=== PATIENT | female | born 1965 | race Caucasian/White ===

== ENCOUNTER 2021-12-18 06:24 | Outpatient (CLI) | payer MEDICARE, OTHER, SELFPAY ==
[2021-12-18 07:02] LABS: Basophils Percent Auto 0.5 % (0.0-3.0); Eosinophils Percent Auto 3.2 % (0.0-7.0); Hematocrit 44.1 % (33.0-51.0); Hemoglobin* 15.4 gm/dL (12.0-16.0); Immature Granulocytes Abs Auto 0.02 K/uL (0.00-0.30); Lymphocytes Percent Auto 43.3 % (20-44); Mean Corpuscular HGB Conc 35 gm/dL (32-36); Mean Corpuscular Hemoglobin 33 pg (26-34); Mean Corpuscular Volume 95 fL (80-100); Monocytes Percent Auto 7.9 % (0.0-11.0); Neutrophils Percent Auto 44.6 % (42.0-72.0); Platelet Count* 224 K/uL (140-440); RDW Coefficient of Variation % 12.8 % (11.5-15.5); Red Blood Count 4.64 m/uL (4.00-5.20); White Blood Count* 4.43 K/uL (4.50-11.00)
[2021-12-18 07:13] LABS: Slide Review Reflex No
[2021-12-18 07:22] LABS: Albumin* 4.4 g/dL (3.3-5.0); Chloride* 106 mmol/L (96-114)
[2021-12-18 07:23] LABS: Potassium* 3.8 mmol/L (3.6-5.1); Sodium* 139 mmol/L (135-149)
[2021-12-18 07:25] LABS: Alkaline Phosphatase* 66 U/L (40-150); Aspartate Amino Transferase* 28 U/L (12-35); Bilirubin Total* 0.8 mg/dL (0.1-1.5); Blood Urea Nitrogen* 13 mg/dL (7-30); Carbon Dioxide* 25 mmol/L (20-32); Creatinine* 0.7 mg/dL (0.5-1.5); Estimated Glomerular Filt Rate 101 ml/min; Total Protein* 6.7 g/dL (6.0-8.3)
[2021-12-18 07:26] LABS: Alanine Aminotransferase* 21 U/L (4-35); Calcium* 9.3 mg/dL (8.4-10.6); Glucose* 110 mg/dL (60-115)
[2021-12-18 07:42] LABS: Vitamin D 25 Hydroxy* 63 ng/mL (30-80)
[2021-12-18 08:01] LABS: Ferritin* 61.1 ng/mL (11.1-264.0)
[2021-12-19 15:17] LABS: CRP, High Sensitivity 0.4 mg/L (<=3.0)
[2021-12-19 16:16] LABS: Homocysteine, Total 7 umol/L (0-15)
[2022-01-20 16:42] LABS: DHEAS 105
== END 2021-12-18 06:25 | disposition home or self-care (01) ==
PROVIDERS: Family Medicine; PCP Family Medicine
DX: B82.9 Intestinal parasitism, unspecified (principal); D72.819 Decreased white blood cell count, unspecified; K59.00 Constipation, unspecified; Z87.442 Personal history of urinary calculi; Z13.0 Encounter for screening for diseases of the blood and blood-forming organs and certain disorders involving the immune mechanism; M79.7 Fibromyalgia
CPT/HCPCS: 36415; 80053; 82306; 82627; 82728; 83090; 84590; 85025; 86141

== ENCOUNTER 2022-04-21 07:44 | Outpatient (CLI) | payer MEDICARE, OTHER, SELFPAY ==
[2022-04-21 08:41] LABS: Basophils Percent Auto 0.7 % (0.0-3.0); Eosinophils Percent Auto 2.1 % (0.0-7.0); Hemoglobin* 15.9 gm/dL (12.0-16.0); Lymphocytes Percent Auto 43.4 % (20-44); Mean Corpuscular HGB Conc 35 gm/dL (32-36); Mean Corpuscular Hemoglobin 33 pg (26-34); Mean Corpuscular Volume 96 fL (80-100); Monocytes Percent Auto 6.9 % (0.0-11.0); Neutrophils Percent Auto 46.9 % (42.0-72.0); Platelet Count* 225 K/uL (140-440); RDW Coefficient of Variation % 12.4 % (11.5-15.5); Red Blood Count 4.79 m/uL (4.00-5.20); White Blood Count* 4.19 K/uL (4.50-11.00)
[2022-04-21 08:46] LABS: Slide Review Reflex No
[2022-04-21 08:55] LABS: Albumin* 5.1 g/dL (3.3-5.0); Chloride* 105 mmol/L (96-114); Creatinine* 0.7 mg/dL (0.5-1.5); Estimated Glomerular Filt Rate 100 ml/min; Potassium* 4.6 mmol/L (3.6-5.1); Sodium* 141 mmol/L (135-149)
[2022-04-21 08:56] LABS: Alanine Aminotransferase* 23 U/L (4-35); Alkaline Phosphatase* 62 U/L (40-150); Aspartate Amino Transferase* 29 U/L (12-35); Bilirubin Total* 0.8 mg/dL (0.1-1.5); Blood Urea Nitrogen* 14 mg/dL (7-30); Calcium* 9.6 mg/dL (8.4-10.6); Carbon Dioxide* 29 mmol/L (20-32); Glucose* 92 mg/dL (60-115); Total Protein* 7.6 g/dL (6.0-8.3)
[2022-04-22 21:41] LABS: DHEAS 125 ug/dL (19-205)
== END 2022-04-21 07:45 | disposition home or self-care (01) ==
PROVIDERS: PCP Family Medicine; Visit Provider Family Medicine
DX: R53.83 Other fatigue (principal); B82.9 Intestinal parasitism, unspecified; Z87.442 Personal history of urinary calculi; Z79.890 Hormone replacement therapy
CPT/HCPCS: 36415; 80053; 82627; 85025

== ENCOUNTER 2023-03-27 13:08 | Outpatient (CLI) | payer MEDICARE, OTHER, SELFPAY ==
--- NOTE | 2023-03-27 13:20 | CRLHL7_ITS ---
For Patients: As a result of the Cures Act, medical imaging exams and procedure reports are released immediately into your electronic medical record. You may view this report before your referring provider. If you have questions, please contact your health care provider. BILATERAL SCREENING MAMMOGRAM WITH COMPUTER-AIDED DETECTION AND TOMOSYNTHESIS TECHNIQUE: CC and MLO views were obtained. These mammographic images have been obtained using full-field digital technique. These mammographic images were interpreted with the benefit of computer-aided detection. Breast tomosynthesis was used in this interpretation. COMPARISON FILM: 07/09/21, 05/10/20, 04/04/19. FINDINGS: There are scattered areas of fibroglandular density. IMPRESSION: There is no radiographic evidence for malignancy. ASSESSMENT: BI-RADS Category 1: Negative RECOMMENDATION: Routine screening mammogram in 1 year. A lay language report of this examination will be provided to the patient. STEPHEN LAND M.D. Diagnostic Radiologist [email or web address] Transcribed: 03/30/2023, 3:[address]/Dictated by: Stephen Land MD @ 03/30/2023 9:19:00 AM (Electronically Signed)
== END 2023-03-27 13:09 | disposition home or self-care (01) ==
PROVIDERS: PCP Family Medicine; Visit Provider Obstetrics & Gynecology
DX: Z12.31 Encounter for screening mammogram for malignant neoplasm of breast
CPT/HCPCS: 77063; 77067

== ENCOUNTER 2023-05-01 13:00 | Outpatient (RCR) | payer MEDICARE, OTHER, SELFPAY | END 2023-08-29 23:59 | disposition home or self-care (01) | PROVIDERS: PCP Family Medicine; Visit Provider Family Medicine | DX: S33.2XXA Dislocation of sacroiliac and sacrococcygeal joint, initial encounter (principal); M25.60 Stiffness of unspecified joint, not elsewhere classified; M62.838 Other muscle spasm; R52 Pain, unspecified; Z51.89 Encounter for other specified aftercare | CPT/HCPCS: 97110; 97140; 97162; 97535 ==

== ENCOUNTER 2023-07-14 10:52 | Emergency (ER) | payer MEDICARE, OTHER, SELFPAY ==
[2023-07-14] VITALS (9 sets, daily range): BP systolic 115–137; BP diastolic 71–81; PULSE 72–90; RESP 16; TEMP 36.2; O2SAT 96–100; BMI 24.8
--- NOTE | 2023-07-14 11:12 | ED_ITS ---
HPI - General Adult General Chief complaint: GI Bleed Stated complaint: lower left abdominal pain,blood in stool Time Seen by Provider: 07/14/23 10:55 History of Present Illness HPI narrative: Pt reports hx of diverticulitis. Symptoms have been progressing for about a month, LLQ pain. Pt reports has had some bleeding in stool during this time, yesterday there was a large amount of blood and clotting in stool. Pt reports hx of sepsis related to her diverticulitis in the past. 58-year-old woman presenting to the emergency department with concern of possible diverticulitis. Has been having some bleeding in her stool which seems atypical for her hemorrhoidal bleeding in the past. Admits that it might have a fissure as well. Yesterday though had larger amount of blood and hilary clots with bowel movement. Nauseated after this with some chills. Has not measured a fever. History of sepsis related to this and ureteral stone independently. Pain is an intense pressure in the left lower quadrant she can feel it around to the back a little bit. Does not report any dysuria frequency urgency or actual hematuria. It has been a few years since her last colonoscopy. Denies history of inflammatory bowel disorders. She has been having intermittent pulses of intense pain in the left lower abdomen over the last month. Intermittent bleeding in the toilet as well more than just staining toilet tissue. Today as noted above is worse. Related Data Home Medications Medication Instructions Recorded Confirmed epinephrine 0.3 mg/0.3 mL 0.3 ml IM .As Needed as needed PRN 12/25/21 07/09/23 injection, auto-injector ondansetron 4 mg disintegrating 4 mg PO .prn PRN 12/25/21 07/09/23 tablet estradiol PO 07/14/23 minoxidil-progesterone topical 07/14/23 progesterone micronized .ROUTE 07/14/23 Previous Rx's Medication Instructions Recorded hydrocortisone 2.5 % topical cream 1 applic topical BID PRN rash #30 06/24/22 grams ketoconazole 2 % topical cream 1 applic topical BID #60 grams 07/03/22 ondansetron 4 mg disintegrating 4 mg PO Q4-6H PRN nausea and 07/14/23 tablet vomiting #12 tabs peg 3350-electrolytes 236 See Rx Instructions .Route 07/14/23 gram-22.74 gram-6.74 gram-5.86 .COMPLEX #4,000 mL gram solution (GaviLyte-G) Allergies Allergy/AdvReac Type Severity Reaction Status Date / Time tamsulosin Allergy Severe Optic Verified 07/09/23 15:37 swelling dairy Allergy Intermediate Hives Uncoded 07/09/23 15:37 Nut tree Allergy Intermediate Hives Uncoded 07/09/23 15:37 [place] seed oil Allergy Intermediate Hives Uncoded 07/09/23 15:37 Wheat Extract Allergy Intermediate Hives Uncoded 07/09/23 15:37 Review of Systems Status of ROS: Reports: 6 or more systems reviewed and unremarkable except as noted in History and below [facility] Medical History Fungus infection ?B49 - Unspecified mycosis (ICD-10) Ear fullness ?H93.8X9 - Other specified disorders of ear, unspecified ear (ICD-10) Trigger finger ?M65.30 - Trigger finger, unspecified finger (ICD-10) History of induced hypertension ?Z87.59 - Personal history of other complications of , childbirth and the puerperium (ICD-10) Calculus of kidney ?N20.0 - Calculus of kidney (ICD-10) Basal cell carcinoma (BCC) ?C44.91 - Basal cell carcinoma of skin, unspecified (ICD-10) Acute flank pain ?R10.9 - Unspecified abdominal pain (ICD-10) Surgical History History of primary section ?Z98.891 - History of uterine scar from previous surgery (ICD-10) History of prior ablation treatment ?Z98.890 - Other specified postprocedural states (ICD-10) History of arthroscopy of left knee (11/07/16) ?Z98.890 - Other specified postprocedural states (ICD-10) History of ureter stent (2014) History of section (2002) ?Z98.891 - History of uterine scar from previous surgery (ICD-10) Family History Mother Ovarian cancer Thyroid cancer Colon cancer, Onset Age: 75 Sister Thyroid cancer Father Melanoma, Onset Age: 68 Social History Narrative: Exercises regularly. 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-smoker S/P ureteral stent placement Social drinker, 3-4/week What is your current living situation?: I presently have a place to live In the past 12 months, utilities in danger of being shut off: no In past 12 months, lack of transportation kept you from medical appts, meetings, work, or getting things needed for daily living: no In the past 12 mos, the food you bought just didn't last and you didn't have money to buy more?: never true Smoking Status: Never smoker Do you use any of these nicotine containing products: None How often do you have a drink containing alcohol: never AUDIT-C Alcohol total score: 0 Non-prescribed substance use: denies use How often does anyone, including family, friends and others, physically hurt you : never How often does anyone, including family, friends and others, insult or talk down to you: never How often does anyone, including family, friends and others, threaten you with harm: never How often does anyone, including family, friends and others, scream or curse at you: never Little interest or pleasure in doing things: not at all Feeling down, depressed, or hopeless: not at all service: No Exam Narrative: Exam Narrative: Very pleasant. Of good energy. Breathing easily. Lungs are clear. Heart in mildly elevated rate regular rhythm. No murmur rub or gallop identified. Abdomen with normoactive bowel sounds is soft and mildly tender in the left lower quadrant. There are no peritoneal signs. Extremities are well perfused. She is without edema. Const: Vital Signs, click to edit/add: Vital Signs - 24 hr 07/14/23 11:01 07/14/23 11:54 07/14/23 11:55 Temperature 97.2 F L Pulse Rate 73 73 Pulse Rate [Pulse Oximeter] 90 Respiratory Rate 16 Blood Pressure 115/81 Blood Pressure [Ri ght Upper Arm] 129/76 Pulse Oximetry 100 98 98 Oxygen Delivery Me thod Room Air 07/14/23 11:55 07/14/23 12:00 07/14/23 12:02 Temperature Pulse Rate 73 86 81 Pulse Rate [Pulse Oximeter] Respiratory Rate Blood Pressure 115/81 128/71 Blood Pressure [Ri ght Upper Arm] Pulse Oximetry 98 96 96 Oxygen Delivery Me thod 07/14/23 12:30 07/14/23 12:35 07/14/23 13:00 Temperature Pulse Rate 73 78 73 Pulse Rate [Pulse Oximeter] Respiratory Rate Blood Pressure Blood Pressure [Ri ght Upper Arm] Pulse Oximetry 99 96 98 Oxygen Delivery Me thod 07/14/23 13:02 07/14/23 13:02 Temperature Pulse Rate 72 72 Pulse Rate [Pulse Oximeter] Respiratory Rate Blood Pressure 137/78 137/78 Blood Pressure [Ri ght Upper Arm] Pulse Oximetry 99 99 Oxygen Delivery Me thod Documenting provider has reviewed patient's vital signs: yes Course Vital Signs Vital signs: Initial Vital Signs Temperature 97.2 F L 07/14/23 11:01 Temperature Source Temporal Artery Scan 07/14/23 11:01 Pulse Rate 90 07/14/23 11:01 Respiratory Rate 16 07/14/23 11:01 Blood Pressure 129/76 07/14/23 11:01 Blood Pressure Mean 93 07/14/23 11:01 Blood Pressure Position Sitting 07/14/23 11:01 Pulse Oximetry 100 07/14/23 11:01 Oxygen Delivery Method Room Air 07/14/23 11:01 Vital Signs Temperature 97.2 F L 07/14/23 11:01 Pulse Rate 90 07/14/23 11:01 Respiratory Rate 16 07/14/23 11:01 Blood Pressure 129/76 07/14/23 11:01 Pulse Oximetry 100 07/14/23 11:01 Oxygen Delivery Method Room Air 07/14/23 11:01 Temperature 97.2 F L 07/14/23 11:01 Pulse Rate 72 07/14/23 13:02 Respiratory Rate 16 07/14/23 11:01 Blood Pressure 137/78 07/14/23 13:02 Pulse Oximetry 99 07/14/23 13:02 Oxygen Delivery Method Room Air 07/14/23 11:01 Medical Decision Making MDM Narrative Medical decision making narrative: This might well be diverticular bleed. Has reassuring belly exam however. Return with die repairer forging to have a look with anoscope for potentially associated hemorrhoidal bleeding. Will check labs for more red flags or degree of illness. I suppose this could be separate rectal passage bleeding and ovarian issue like leaking ovarian cyst. Does not appear to be torsion level pain. Would be prudent to collect a urinalysis as well given history of kidney stones however pain also seems atypical as does the degree of blood that was described to be associated with ureteral stone. Returned to do anoscope exam. And there are [id number] noninflamed hemorrhoidal tissue externally. No marked bleeding on anoscope exam noted there is some trace streaks of blood though internally. She does say that with her last bowel movement there was not blood. Labs were reassuring. Hemoglobin little over 15. White count is not elevated. Normal CRP. Discussed potential further evaluation with CT scan abdomen. This would not be ideal assessment for rectal bleeding absent diarrhea, particularly in light of normal white count and CRP. Noted also duration of at least a month of cramping discomfort. I think this is best visualized/assessed with direct visualization with colonoscopy. Fear by Mrs. Marrero is expressed as potential abdominal mass of some sort. Mrs. Marrero and her are also inclined to defer CT imaging particularly as we are able to schedule colonoscopy for 3 days from now. I think less likely also diverticulitis for similar reasoning. I did offer antibiotics however for this but Mrs. Marrero also I think reasonably declined/deferred. No interventions were needed here in the emergency department. See patient discharge plan Medical Records Medical records reviewed: Yes I reviewed the patient's medical records Lab Data Lab results reviewed: Yes I reviewed the patient's lab results Labs: Lab Results 07/14/23 07/14/23 Range/Units 11:50 12:05 WBC 5.01 (4.50-11.00) K/uL RBC 4.67 (4.00-5.20) m/uL Hgb 15.1 (12.0-16.0) gm/dL Hct 44.8 (33.0-51.0) % MCV 96 (80-100) fL MCH 32 (26-34) pg MCHC 34 (32-36) gm/dL RDW Coeff of [place] 12.3 (11.5-15.5) % Plt Count 161 (140-440) K/uL Neut % (Auto) 47.9 (42.0-72.0) % Lymph % (Auto) 42.9 (20-44) % Tift % (Auto) 6.8 (0.0-11.0) % Eos % (Auto) 1.8 (0.0-7.0) % Baso % (Auto) 0.4 (0.0-3.0) % Neut # (Auto) 2.40 (1.7-7.0) K/uL Lymph # (Auto) 2.15 (0.90-2.90) K/uL Tift # (Auto) 0.30 (0.00-0.90) K/UL Eos # (Auto) 0.09 (0.00-0.50) K/uL Baso # (Auto) 0.02 (0.00-0.30) K/uL Abs Immat Gran (auto) 0.01 (0.00-0.30) K/uL Imm/Tot Granulo (auto) 0.2 % Diff Slide Review Acceptable Review (Acceptable) Sodium 140 (135-149) mmol/L Potassium 4.2 (3.6-5.1) mmol/L Chloride 105 (96-114) mmol/L Carbon Dioxide 25 (20-32) mmol/L Anion Gap 10 (7-15) mEq/L BUN 14 (7-30) mg/dL Creatinine 0.7 (0.5-1.5) mg/dL Estimated Creat Clear 90.43 Estimated GFR 100 ml/min Glucose 99 (60-115) mg/dL Calcium 9.7 (8.4-10.6) mg/dL C-Reactive Protein < 0.5 L (0.5-1.0) mg/dL Urine Color Yellow (Yellow) Urine Appearance Clear (Clear) Urine pH 6.0 (5.0-8.5) Ur Specific [place] 1.015 (1.000-1.030) Urine Protein Negative (Negative) Urine Glucose (UA) Negative (Negative) Urine Ketones Negative (Negative) Urine Blood Negative (Negative) Urine Nitrite Negative (Negative) Urine Bilirubin Negative (Negative) Urine Urobilinogen 0.2 (0.2-1.0) Ur Leukocyte Esterase Negative (Negative) Urine RBC 0-2 (0-2) Urine WBC 0-2 (0-5) Ur Squamous Epith Cells None (None-Few) Urine Bacteria None (None) Discharge Plan Discharge Clinical Impression: Abdominal pain, left lower quadrant, Lower GI bleed Patient Disposition: Home w/ Parent or Adult Condition: Stable Additional Instructions: Yes. Do pay attention :) Return for marked increase in persistent abdominal pain, associated fever, pe rsistent and increasing bleeding. Will send in Zofran and GoLYTELY to your pharmacy. Your colonoscopy is scheduled for July 17 with a 12:30pm arrival time. Please enter through the [facility]. If you have any questions or need to reschedule, please call [phone]. Please follow-up results with primary care provider; hopefully they transfer over there readily. Prescriptions: New ondansetron 4 mg tablet,disintegrating 4 mg PO Q4-6H PRN (Reason: nausea and vomiting) Qty: 12 1RF peg 3350-electrolytes [GaviLyte-G] 236-22.74-6.74 -5.86 gram recon soln See Rx Instructions .ROUTE .COMPLEX Qty: 4000 0RF Rx Instructions: see included instructions for bowel prep No Action hydrocortisone 2.5 % cream 1 applic topical BID PRN (Reason: rash) Qty: 30 1RF Rx Instructions: Apply topically to eyelids twice daily as needed, when skin clears put cream away ketoconazole 2 % cream 1 applic topical BID Qty: 60 0RF Rx Instructions: Apply to bottoms of feet and between toes twice a day for 3 weeks. ondansetron 4 mg tablet,disintegrating 4 mg PO .prn PRN epinephrine 0.3 mg/0.3 mL auto-injector 0.3 ml IM .As Needed as needed PRN estradiol PO minoxidil-progesterone topical Hold Instructions: Order Change progesterone micronized .ROUTE Follow Up/Referrals: Anup Steinberg MD [Primary Care Provider] - Stand Alone Forms: Plan B [facility] Info Instructions
[2023-07-14 12:08] LABS: Basophils Absolute Auto 0.02 K/uL (0.00-0.30); Basophils Percent Auto 0.4 % (0.0-3.0); Eosinophils Absolute Auto 0.09 K/uL (0.00-0.50); Eosinophils Percent Auto 1.8 % (0.0-7.0); Hematocrit 44.8 % (33.0-51.0); Hemoglobin* 15.1 gm/dL (12.0-16.0); Immature Granulocytes Abs Auto 0.01 K/uL (0.00-0.30); Immature Granulocytes Pct Auto 0.2 %; Lymphocytes Absolute Auto 2.15 K/uL (0.90-2.90); Lymphocytes Percent Auto 42.9 % (20-44); Mean Corpuscular HGB Conc 34 gm/dL (32-36); Mean Corpuscular Hemoglobin 32 pg (26-34); Mean Corpuscular Volume 96 fL (80-100); Monocytes Percent Auto 6.8 % (0.0-11.0); Neutrophils Percent Auto 47.9 % (42.0-72.0); Platelet Count* 161 K/uL (140-440); RDW Coefficient of Variation % 12.3 % (11.5-15.5); Red Blood Count 4.67 m/uL (4.00-5.20); White Blood Count* 5.01 K/uL (4.50-11.00)
[2023-07-14 12:15] LABS: Chloride* 105 mmol/L (96-114); Potassium* 4.2 mmol/L (3.6-5.1); Sodium* 140 mmol/L (135-149)
[2023-07-14 12:17] LABS: Appearance Urine Clear (Clear); Bilirubin Urine Negative (Negative); Blood Urine Negative (Negative); Color Urine Yellow (Yellow); Glucose Urine Negative (Negative); Ketones Urine Negative (Negative); Leukocyte Esterase Urine Negative (Negative); Nitrite Urine Negative (Negative); Protein Urine Negative (Negative); Specific Gravity Urine 1.015 (1.000-1.030); Urobilinogen Urine 0.2 (0.2-1.0)
[2023-07-14 12:18] LABS: Anion Gap 10 mEq/L (7-15); Blood Urea Nitrogen* 14 mg/dL (7-30); Carbon Dioxide* 25 mmol/L (20-32); Creatinine* 0.7 mg/dL (0.5-1.5); Est. Creatinine Clearance* 90.43; Estimated Glomerular Filt Rate 100 ml/min; Glucose* 99 mg/dL (60-115)
[2023-07-14 12:19] LABS: Calcium* 9.7 mg/dL (8.4-10.6)
[2023-07-14 12:22] LABS: C Reactive Protein* < 0.5 mg/dL (0.5-1.0)
[2023-07-14 12:29] LABS: Slide Review Reflex Yes
[2023-07-14 12:30] LABS: Slide Review Acceptable Review (Acceptable)
[2023-07-14 12:35] LABS: RBC Urine 0-2 (0-2); WBC Urine 0-2 (0-5)
== END 2023-07-14 13:32 | disposition home or self-care (01) ==
PROVIDERS: Emergency Provider Family Medicine; PCP Family Medicine
DX: R10.32 Left lower quadrant pain (principal); K92.2 Gastrointestinal hemorrhage, unspecified
CPT/HCPCS: 36415; 80048; 81001; 85025; 86140; 99283; 99284

== ENCOUNTER 2023-07-17 09:29 | Outpatient (CLI) | payer MEDICARE, OTHER, SELFPAY ==
--- NOTE | 2023-07-17 10:51 | W.ANESCHARGE ---
Anesthesia Charges Start Date/Time Anesthesia Start Date: 07/17/23 Anesthesia Start Time: 10:20 Stop Date/Time Anesthesia Stop Date: 07/17/23 Anesthesia Stop Time: 10:51
--- NOTE | 2023-07-17 11:07 | W.ANESCHARGE ---
Anesthesia Charges Start Date/Time Anesthesia Start Date: 07/17/23 Anesthesia Start Time: 10:20 Stop Date/Time Anesthesia Stop Date: 07/17/23 Anesthesia Stop Time: 10:51
== END 2023-07-17 09:30 | disposition home or self-care (01) ==
LOC: OP CLINIC 09:29
PROVIDERS: PCP Family Medicine; Visit Provider Internal Medicine
DX: K92.1 Melena (principal); K64.8 Other hemorrhoids; K63.89 Other specified diseases of intestine; K57.30 Diverticulosis of large intestine without perforation or abscess without bleeding
CPT/HCPCS: 00811; 45380; 88305; J2704

== ENCOUNTER 2023-08-12 14:36 | Outpatient (CLI) | payer MEDICARE, OTHER, SELFPAY ==
--- NOTE | 2023-08-12 15:00 | US_ITS ---
Patient: ARLEY REDMAN Facility:?[facility] Patient ID:?[id number] Site Patient ID:?[id number]. Site :?[id number] Study:?US-Pelvis TA/TV-08/12/2023 3:50:49 PM Ordering Physician:CITLALY Final Report: CLINICAL HISTORY: Pain TECHNIQUE: 2D pelayo scale ultrasound. In addition color Doppler and spectral Doppler analysis was performed of the pelvis using a transabdominal and transvaginal approach. FINDINGS: On transvaginal imaging, the myometrium has a heterogeneous echotexture. The uterus measures 4.8 x 4.0 x 3.0 cm. The endometrial lining measures 3 mm in thickness. Hypoechoic uterine fibroid measures 5 x 3 x 7 millimeters. The right ovary measures 3.5 x 1.0 x 1.0 cm. Hypoechoic right ovarian cyst measures 1.6 x 1.0 x 0.9 cm. Calcification within the left ovary measuring 3 millimeters. The left ovary measures 2.4 x 1.0 x 1.1 cm. The ovaries demonstrate normal arterial and venous blood flow on color Doppler and spectral Doppler analysis. There are no suspicious fluid collections within the cul-de-sac. IMPRESSION: Heterogeneous uterine echotexture with small fibroid measuring 7 millimeters. Endometrial thickness 3 millimeters. Hypoechoic nonvascular right ovarian cyst measures 1.6 cm. Consider a follow up ultrasound in less than 6 months. Pelvic MRI could also be considered. Incidental calcification left ovary. Dictated by Stephen Calvo MD @ 08/13/2023 10:33:23 AM Signed by:?Stephen Calvo MD @08/13/2023 10:33:23 AM (Electronic Signature)
== END 2023-08-12 14:37 | disposition home or self-care (01) ==
LOC: US 14:37
PROVIDERS: PCP Family Medicine; Visit Provider Family Medicine
DX: R10.32 Left lower quadrant pain (principal); D25.9 Leiomyoma of uterus, unspecified; R93.89 Abnormal findings on diagnostic imaging of other specified body structures; N83.201 Unspecified ovarian cyst, right side
CPT/HCPCS: 76830; 76856; 93976

== ENCOUNTER 2024-02-09 12:04 | Outpatient (CLI) | payer MEDICARE, OTHER, SELFPAY ==
--- NOTE | 2024-02-09 12:15 | CRLHL7_ITS ---
For Patients: As a result of the Cures Act, medical imaging exams and procedure reports are released immediately into your electronic medical record. You may view this report before your referring provider. If you have questions, please contact your health care provider. INDICATION: Thyroid nodule COMPARISON: 07/12/2019 outside study TECHNIQUE: [place] scale and color Doppler images were acquired of the thyroid gland. FINDINGS: Spongiform nodule left thyroid lobe measures 8 x 4 x 6 millimeters. Solid hypoechoic nodule left thyroid lobe measures 9 x 4 x 7 millimeters. Additional hypoechoic nodule left thyroid lobe measures 8 x 4 x 7 millimeters. Solid nodule right thyroid lobe measures 9 x 5 x 9 millimeters. Solid and cystic nodule right thyroid lobe measures 16 x 5 x 10 millimeters. Solid and cystic nodule right thyroid lobe nodule measures 12 x 6 x 9 millimeters. Other smaller nodules are present elsewhere. Isthmus measures 1.7 millimeters. The right lobe measures 5.5 x 1.3 x 2.0 cm and the left lobe measures 5.3 x 1.2 x 1.9 cm in size. The color Doppler images demonstrate normal vascularity. There is no evidence of cervical lymphadenopathy or parathyroid mass. IMPRESSION: Bilateral thyroid nodules measuring up to 1.2 cm. No FNA indicated at this time. Findings are relatively similar to the prior study. Dictated by Stephen Calvo MD @ 02/09/2024 12:49:15 PM (Electronically Signed)
== END 2024-02-09 12:05 | disposition home or self-care (01) ==
PROVIDERS: PCP Family Medicine; Visit Provider Family Medicine
DX: E04.1 Nontoxic single thyroid nodule (principal)
CPT/HCPCS: 76536

== ENCOUNTER 2024-02-16 10:19 | Outpatient (CLI) | payer MEDICARE, OTHER, SELFPAY ==
--- NOTE | 2024-02-16 10:45 | CRLHL7_ITS ---
For Patients: As a result of the Century Cures Act, medical imaging exams and procedure reports are released immediately into your electronic medical record. You may view this report before your referring provider. If you have questions, please contact your health care provider. CLINICAL HISTORY: f/u from prior exam endometrium and rt ovary TECHNIQUE: 2D pelayo scale and color Doppler images were acquired of the pelvis using a transvaginal approach. Comparison 08/12/2023 FINDINGS: Uterine echotexture is heterogeneous. Small intramural fibroid is present measuring 7 millimeters. The uterus measures 6.1 x 2.4 x 3.6 cm. The endometrial lining measures 3.3 mm in thickness. The left ovary measures 2.4 x 1.3 x 1.6 cm in size and the right ovary measures 2.6 x 1.1 x 1.1 cm. Similar echogenic focus within the left ovary measuring 3 millimeters. The ovaries demonstrate normal arterial and venous blood flow on color Doppler analysis. There are no suspicious fluid collections within the cul-de-sac. IMPRESSION: The right ovary appears normal on the current exam. Stable incidental calcification left ovary. Endometrial thickness 3.3 millimeters. Dictated by Stephen Calvo MD @ 02/16/2024 1:01:35 PM (Electronically Signed)
== END 2024-02-16 10:20 | disposition home or self-care (01) ==
LOC: US 10:21
PROVIDERS: PCP Family Medicine; Visit Provider Family Medicine
DX: N85.00 Endometrial hyperplasia, unspecified (principal); R93.89 Abnormal findings on diagnostic imaging of other specified body structures
CPT/HCPCS: 76830

== ENCOUNTER 2024-04-04 13:38 | Outpatient (CLI) | payer MEDICARE, OTHER, SELFPAY ==
--- NOTE | 2024-04-04 14:00 | CRLHL7_ITS ---
For Patients: As a result of the Century Cures Act, medical imaging exams and procedure reports are released immediately into your electronic medical record. You may view this report before your referring provider. If you have questions, please contact your health care provider. BILATERAL SCREENING MAMMOGRAM WITH COMPUTER-AIDED DETECTION AND TOMOSYNTHESIS TECHNIQUE: CC and MLO views were obtained. These mammographic images have been obtained using full-field digital technique. These mammographic images were interpreted with the benefit of computer-aided detection. Breast Tomosynthesis was used in this interpretation. COMPARISON FILM: 03/27/23, 07/09/21, 05/10/20. FINDINGS: There are scattered areas of fibroglandular density. IMPRESSION: There is no radiographic evidence for malignancy. ASSESSMENT: BI-RADS Category 2: Benign RECOMMENDATION: Routine screening mammogram in 1 year. A lay language report of this examination will be provided to the patient. Cedric Palacio M.D. Diagnostic/Nuclear Medicine Radiologist [email or web address] NEO/mary SP/Dictated by: Cedric Palacio MD @ 04/06/2024 12:05:00 PM (Electronically Signed)
== END 2024-04-04 13:39 | disposition home or self-care (01) ==
LOC: MAMMO 13:40
PROVIDERS: PCP Family Medicine; Visit Provider Family Medicine
DX: Z12.31 Encounter for screening mammogram for malignant neoplasm of breast (principal)
CPT/HCPCS: 77063; 77067

== ENCOUNTER 2024-05-31 14:47 | Outpatient (CLI) | payer MEDICARE, OTHER, SELFPAY | END 2024-05-31 14:48 | disposition home or self-care (01) | LOC: NFLDREF 06-04 01:15 | PROVIDERS: PCP Family Medicine; Referring Provider Family Medicine; Visit Provider Family Medicine | DX: R50.9 Fever, unspecified (principal); J06.9 Acute upper respiratory infection, unspecified | CPT/HCPCS: 87651 ==